=== PATIENT | female | born 2000 | race Caucasian/White ===

== ENCOUNTER 2021-07-18 13:39 | Inpatient (IN) | payer MEDICAID, SELFPAY ==
[2021-07-18 13:42] VITALS: BMI 42.4
[2021-07-18 14:33] VITALS: BP 117/77; PULSE 61; RESP 18; TEMP 36.4; O2SAT 98
--- NOTE | 2021-07-18 14:41 | PC.NURSE ---
ADMISSION 20 y/o Female. Direct admit from [facility]. SI after finding out last night that her boyfriend is cheating on her. With them breaking up, she now has to move out. This is also the father of her 1 year old child. Has a history of being inpatient in the past. Denies any suicidal intent but knows the thoughts would return if she went home from ED without help first. Has Hx of depression, anxiety, migraines, hypothyroidism, and Von Willebrand Disease. Upon arrival is tearful, cooperative, A&OX4. Denies current SI. Reports has anger issues at times. UDS negative. Does OP care with [facility] in [place]. Currently on Zoloft and Synthroid, confirmed with pharmacy and resumed per Dr order with Dr. Romo.
[2021-07-18 21:19] VITALS: BP 134/77; PULSE 82; RESP 16; TEMP 36.6; O2SAT 99
--- NOTE | 2021-07-18 21:28 | PC.NURSE ---
Bruising noted to right palm and index finger. States neck is sore. This nurse did not see bruising or redness noted to neck.
[2021-07-19 06:00] VITALS: BP 109/57; PULSE 52; RESP 16; TEMP 36.4; O2SAT 97
[2021-07-19] MEDS: sertraline 50 mg Tablet PO (08:00)
[2021-07-19] MEDS: levothyroxine 100 mcg Tablet PO (08:01)
--- NOTE | 2021-07-19 12:25 | P.NPUHP_ITS ---
Providers/Chief Complaint Admitting Physician: Raz Romo MD Chief Complaint: SI HPI NPU History of Present Illness Dianna Morgan is a 20 year old female who was admitted through the emergency department through [facility] in [facility] with the following report: This is a 20-year-old female with a history of anxiety, hypothyroidism, depression, migraine headaches who presents complaining of having suicidal thoughts. Her boyfriend cheated on her and she found out today. She has been having self-harm thoughts but no specific plan at this time. She wants to go to a mental hospital because she wants to be able to take care of herself and be a way from everybody. I ask if she can go home and follow-up with an outpatient psychiatrist but she would not contract for safety. She states that she knows that she will have suicidal thoughts to come back when she leaves the emergency department. She states that she has been to multiple mental health facilities and has been seeing multiple psychiatrists without any significant improvement. She denies any fever, nausea, vomiting, drug use at this time. Current psychotropic medications were listed as BuSpar 15 mg 3 times a day and Zoloft 100 mg daily. She reported that her Synthroid had recently been reduced from 125 mcg down to 100 mcg. Her TSH in the Emergency Department was 15.51 and they recommended increasing to 125 mcg. She said she had been compliant with it recently. She was admitted to the neuropsychiatry unit for definitive treatment of these issues. She says that she has been admitted to the hospital several times at her house. When she was 13 she was admitted for about 45 days. She is also seeing a psychiatrist and they have not been able to be helpful. She says the medications do not help. She has been more depressed the last month or so. She has noticed that her boyfriend has been acting different. They have been dating since they were in middle school and have been living together for the last 2 years. He is the father of her 1-year-old son. She decided to go through his phone and saw that he was talking to another girl. He says that he is not talking to her but she was texting with her. She said that if it was not significant then why did he hide it from her. He said that she was annoying him and he said that they should split up. He kicked her and her son out of the house. He said that he would sign away rights to their son. The son is now with her mother. She is going to live with her mother for the time being. She said she really has not had suicidal thoughts but is afraid that it will come if she does not get help. She is currently taking Zoloft 50 mg and BuSpar 15 mg 3 times a day. He does not think that those medications do anything for her. She thinks that she is also on Lamictal but does not know the dose. Says that she has been diagnosed with depression and anxiety and finally agreed that she has bipolar when she was 18. She said that she was too young to be diagnosed with previously. She has been on Abilify. It made her gain was referred for Zyprexa. she has taken Prozac and Lexapro without benefit. She does not think that Zoloft has been doing anything. She is not sure but thinks that she might have general effects during the past. She will call her mother and find out if she is on Lamictal and what is the correct does. She agreed to try Latuda. She said that her doctor recently reduced her levothyroxine to 100 mcg because of her thyroid level looks good. It was about 15.5 in the emergency department. She says that she has been compliant with her levothyroxine. However if she takes it on an empty stomach it makes her lightheaded. She takes it and then immediately eats. She agreed to try taking a smaller dose before breakfast and also before lunch to see if she can tolerate taking it and not eating immediately. She has actually been taking 125 mcg because she had not picked up the prescription for the 100 mcg daily. PAST PSYCHIATRIC HISTORY As above SOCIAL HISTORY As above Meds NPU Home Medications Medication Instructions Recorded Confirmed Last Taken Type levothyroxine [Synthroid] 100 mcg PO QAM 07/18/21 07/18/21 07/18/21 History sertraline 50 mg PO DAILY 07/18/21 07/18/21 07/17/21 History Allergies Allergy/AdvReac Type Severity Reaction Status Date / Time lamotrigine [From Lamictal] Allergy ALGY-Rash Verified 07/18/21 14:54 Penicillins Allergy ALGY-Rash Verified 07/18/21 14:54 vancomycin Allergy ALGY-Rash Verified 07/18/21 14:54 Mental Status Exam MSE Comments: This is a 20-year-old obese female who appears approximately her stated age and is in no acute distress. He is dressed in hospital scrubs and is pleasant and cooperative with the evaluation. He is fairly well groomed and has good eye contact. psychomotor activity is normal. Speech is at a regular rate and rhythm, normal volume, good articulation, not pressured. Alert, oriented X3 Attention and concentration appear to be normal. Memory is intact Mood is depressed. Affect is moderately dysphoric. Thought process is logical and goal-directed. Thought content: Denies auditory and visual hallucinations. No delusions or paranoia are noted. No current suicidal ideation, and no homicidal ideation. Fund of knowledge is average. Insight and judgment appear to be fairly good. Impulse control is fairly good. Vitals/I&O/Wt Last Vital Signs Temp 97.6 F 07/19/21 06:00 Pulse 52 L 07/19/21 06:00 Resp 16 07/19/21 06:00 BP 109/57 07/19/21 06:00 Pulse Ox 97 07/19/21 06:00 Weight last 48 hrs Weight 105.233 kg A&P Assessment and plan (1) Bipolar 1 disorder, depressed: Status: Acute (2) Anxiety: Status: Acute Additional A&P Information This is a 20-year-old female with multiple psychiatric centroblasts that she has not generally felt effective and helpful except that her boyfriend is depressed and worried that she will become suicidal. Plan: 1. Continue current medication. Lamictal she is taking. We will add Latuda mg daily and gradually increase as tolerated. 2. Continue every 15 minute checks for safety. 3. Encourage individual, group and milieu therapies. 4. Encourage sober living treatment after discharge at the highest level of care to which she is willing to commit. 5. We will monitor for safety for herself in the community prior to discharge. Involuntary Hold Information 96 Hour Hold: 96 Hour Involuntary Admission: No Attestations NPU Medical Necessity Statement*: Inpatient hospitalization is medically necessary and the clinically appropriate intervention at this time. We will initiate medications and make changes as indicated. She will be in the hospital for over 2 midnights. Likely length of stay 4-6 days Coding Level of Care Code Acute Energy Sales Consultant for Chg Fwd Diagnoses Bipolar 1 disorder, depressed F31.9 Anxiety F41.9
[2021-07-19 14:00] VITALS: BP 109/57; PULSE 52; RESP 16; TEMP 36.4; O2SAT 97
[2021-07-19 15:20] VITALS: BP 100/65; PULSE 69; RESP 16; TEMP 36.4; O2SAT 98
[2021-07-19] MEDS: lurasidone 20 mg Tablet PO (17:42)
[2021-07-19 19:56] VITALS: BP 139/84; PULSE 77; RESP 17; TEMP 36.6; O2SAT 98
[2021-07-20 05:41] VITALS: BP 99/65; PULSE 58; RESP 17; TEMP 36.7; O2SAT 99
[2021-07-20] MEDS: levothyroxine 50 mcg Tablet 75 MCG PO (06:13)
[2021-07-20] MEDS: sertraline 50 mg Tablet PO (09:12)
[2021-07-20] MEDS: levothyroxine 50 mcg Tablet PO (09:12)
[2021-07-20] MEDS: acetaminophen 325 mg Tablet 650 MG PO (09:52)
--- NOTE | 2021-07-20 09:54 | W.PM.NPUPNS ---
Subjective NPU Subjective: Interval history: She says that her depression and irritability seem to be a little better. Possibly related to the Latuda. However her anxiety is also increased. She says that many medications make her anxiety worse at first. The nurse talked to her mother and she is allergic to Lamictal. She had a rash. Her mother also said that she cannot come back to her home. She has anger problems and attacks her stepfather and her little brothers. Her back pain is also bad today. She says that she was rated at 9 out of 10. That is unusual for her. She says that she has never taken ibuprofen or any nonsteroidal anti-inflammatory drug before and will try that. He needs to continue to try Latuda. Mental Status Exam MSE Comments: This is a 20-year-old obese female who appears approximately her stated age and is in no acute distress. He is dressed in hospital scrubs and is pleasant and cooperative with the evaluation. He is fairly well groomed and has good eye contact. psychomotor activity is normal. Speech is at a regular rate and rhythm, normal volume, good articulation, not pressured. Alert, oriented X3 Attention and concentration appear to be normal. Memory is intact Mood is mildly depressed, better, better. Affect is mildly dysphoric. Thought process is logical and goal-directed. Thought content: Denies auditory and visual hallucinations. No delusions or paranoia are noted. No current suicidal ideation, and no homicidal ideation. Fund of knowledge is average. Insight and judgment appear to be fairly good. Impulse control is fairly good. Cognition: Patient Appearance: Appropriate Ability to Follow Directions: Good Patient Orientation (long list): Person, Place, Time, Name, Birthday and Month Comprehension Ability: Understands Concepts Hallucination Type: None Delusion Description: Not Present Thought Process: Appropriate Affect: Affect Description: Appropriate and Calm Behavior: Patient Behavior: Appropriate and Cooperative Speech Pattern: Appropriate and Clear Vitals/I&O/Wt Last Vital Signs Temp 98.1 F 07/20/21 05:41 Pulse 58 L 07/20/21 05:41 Resp 17 07/20/21 05:41 BP 99/65 07/20/21 05:41 Pulse Ox 99 07/20/21 05:41 Weight last 48 hrs Weight 105.233 kg A&P Assessment and plan (1) Bipolar 1 disorder, depressed: Status: Acute (2) Anxiety: Status: Acute Additional A&P Information This is a 20-year-old female with multiple psychiatric centroblasts that she has not generally felt effective and helpful except that her boyfriend is depressed and worried that she will become suicidal. Plan: 1. Continue current medication. Zoloft 50 mg. We will add Latuda 20 mg daily and gradually increase as tolerated. 2. Continue every 15 minute checks for safety. 3. Encourage individual, group and milieu therapies. 4. Encourage sober living treatment after discharge at the highest level of care to which she is willing to commit. 5. We will monitor for safety for herself in the community prior to discharge. Involuntary Hold Information 96 Hour Hold: 96 Hour Involuntary Admission: No Attestations NPU Medical Necessity Statement*: Inpatient hospitalization is medically necessary and the clinically appropriate intervention at this time. We will initiate medications and make changes as indicated. Coding Level of Care Code Acute Senior Insight Manager International for Jemima Olmstead Diagnoses Bipolar 1 disorder, depressed F31.9 Anxiety F41.9
[2021-07-20 13:41] VITALS: BP 99/65; PULSE 58; RESP 17; TEMP 36.7; O2SAT 99
[2021-07-20] MEDS: lurasidone 20 mg Tablet PO (17:03)
[2021-07-20 21:05] VITALS: BP 130/78; PULSE 61; RESP 15; TEMP 36.8; O2SAT 100
[2021-07-21 06:00] VITALS: BP 101/67; PULSE 61; RESP 16; TEMP 36.8; O2SAT 98
[2021-07-21] MEDS: levothyroxine 50 mcg Tablet 75 MCG PO (06:13)
--- NOTE | 2021-07-21 06:35 | PC.NURSE ---
Addendum entered by Merissa Servin RN 07/21/21 06:52: urine sample collected and hand carried to lab Original Note: Patient c/o pain on urination and frequency. Consulted providor and rcvd new order for UA and C&S if indicated.
[2021-07-21 07:23] LABS: Add Urine Microscopic? NO; Charge for UA Resulting for Rev
[2021-07-21 07:27] LABS: Bilirubin Urine 1+ (Negative); Blood Urine Neg (Negative); Glucose Urine UA Norm (Normal); Ketones Urine 1+ (Negative); Leukocyte Esterase Urine Negative (Negative); Nitrate Urine Negative (Negative); Protein Urine Neg (Negative); Specific Gravity, Urine 1.025 (1.005-1.030); Urine Appearance Clear (CLEAR); Urine Color Yellow (Yellow); Urobilinogen Urine Norm (Negative); pH Urine 5 (5-7)
[2021-07-21] MEDS: levothyroxine 50 mcg Tablet PO (09:36)
[2021-07-21] MEDS: sertraline 50 mg Tablet PO (09:36)
--- NOTE | 2021-07-21 10:16 | W.PM.NPUPNS ---
Subjective NPU Subjective: Interval history: She says that she is doing better. She did not have any side effects from the Latuda 20 mg last night. She does feel that it helps her anxiety and her irritability. Unfortunately she does not have insurance. She says that she applied for Medicaid because she had a insurance she did not qualify for Medicaid. Now she does not have any insurance and she thinks that she should qualify for Medicaid. She needs help applying again. We were going to increase the Latuda to 40 mg but she would not be able to afford it when she leaves. She agreed to try a combination of Geodon and lithium along with increased the Zoloft to 100 mg. She said that she was on Abilify previously but it made her sick. She does not want to be on risperidone because it might increase her weight. Mental Status Exam MSE Comments: This is a 20-year-old obese female who appears approximately her stated age and is in no acute distress. He is dressed in hospital scrubs and is pleasant and cooperative with the evaluation. He is fairly well groomed and has good eye contact. psychomotor activity is normal. Speech is at a regular rate and rhythm, normal volume, good articulation, not pressured. Alert, oriented X3 Attention and concentration appear to be normal. Memory is intact Mood is mildly depressed, but better. Affect is mildly dysphoric. Thought process is logical and goal-directed. Thought content: Denies auditory and visual hallucinations. No delusions or paranoia are noted. No current suicidal ideation, and no homicidal ideation. Fund of knowledge is average. Insight and judgment appear to be fairly good. Impulse control is fairly good. Cognition: Patient Appearance: Appropriate Ability to Follow Directions: Good Patient Orientation (long list): Person, Place, Time, Name, Birthday and Month Comprehension Ability: Understands Concepts Hallucination Type: None Delusion Description: Not Present Thought Process: Appropriate Affect: Affect Description: Appropriate Behavior: Patient Behavior: Appropriate Speech Pattern: Appropriate Vitals/I&O/Wt Last Vital Signs Temp 98.2 F 07/21/21 06:00 Pulse 61 07/21/21 06:00 Resp 16 07/21/21 06:00 BP 101/67 07/21/21 06:00 Pulse Ox 98 07/21/21 06:00 A&P Assessment and plan (1) Bipolar 1 disorder, depressed: Status: Acute (2) Anxiety: Status: Acute Additional A&P Information This is a 20-year-old female with multiple psychiatric centroblasts that she has not generally felt effective and helpful except that her boyfriend is depressed and worried that she will become suicidal. Plan: 1. Continue current medication. increase Zoloft 100 mg. We will stop Latuda 20 mg. Add Geodon and lithium. 2. Continue every 15 minute checks for safety. 3. Encourage individual, group and milieu therapies. 4. Encourage sober living treatment after discharge at the highest level of care to which she is willing to commit. 5. We will monitor for safety for herself in the community prior to discharge. Involuntary Hold Information 96 Hour Hold: 96 Hour Involuntary Admission: No Attestations NPU Medical Necessity Statement*: Inpatient hospitalization is medically necessary and the clinically appropriate intervention at this time. We will initiate medications and make changes as indicated. Coding Level of Care Code Acute Insulation Board Head Saw Operator for Jemima Olmstead Diagnoses Bipolar 1 disorder, depressed F31.9 Anxiety F41.9
[2021-07-21 14:00] VITALS: BP 106/69; PULSE 111; RESP 18; TEMP 36.6; O2SAT 98
[2021-07-21] MEDS: ziprasidone hcl 20 mg Capsule PO (16:23)
[2021-07-21] MEDS: lithium carbonate 300 mg Capsule PO (21:25)
[2021-07-21 21:46] VITALS: BP 124/66; PULSE 62; RESP 16; TEMP 37; O2SAT 97
--- NOTE | 2021-07-22 01:25 | PC.NURSE ---
Patients mother called and requested that Dr. Romo be made aware that patient has been on lithium in the past and it adversely affected her Thyroid function. She also said she was looking into alternative funding for Latuda if possible.
[2021-07-22] MEDS: levothyroxine 50 mcg Tablet 75 MCG PO (05:54)
[2021-07-22 06:00] VITALS: BP 90/57; PULSE 59; RESP 18; TEMP 36.9; O2SAT 100
--- NOTE | 2021-07-22 06:27 | PC.NURSE ---
Patient refused Ziprasidone this am, stating, I don't want to take it in the morning, only at night because I want to get a job in the mornings.
[2021-07-22] MEDS: levothyroxine 50 mcg Tablet PO (08:25)
[2021-07-22] MEDS: lithium carbonate 300 mg Capsule PO (08:25)
[2021-07-22] MEDS: sertraline 100 mg Tablet PO (08:25)
--- NOTE | 2021-07-22 13:55 | W.PM.NPUPNS ---
Subjective NPU Subjective: Interval history: Her other told the nurses that she has had problems with her thyroid when she took lithium 6 or 7 years ago. We will discontinue that. Her mom looked for a discount for the Latuda but could not find anything that would make it affordable. Our social work department put in her Medicaid application yesterday and that it might be 1-3 months before it is approved. She feels that the Geodon at bedtime is helping somewhat. She says that makes her sleepy and she does not want to take it in the morning because she needs to take care of her children and to work. She agreed to increase it to 40 mg at bedtime. Mental Status Exam MSE Comments: This is a 20-year-old obese female who appears approximately her stated age and is in no acute distress. She is dressed in hospital scrubs and is pleasant and cooperative with the evaluation. she is fairly well groomed and has good eye contact. psychomotor activity is normal. Speech is at a regular rate and rhythm, normal volume, good articulation, not pressured. Alert, oriented X3 Attention and concentration appear to be normal. Memory is intact Mood is mildly depressed, but better. Affect is mildly dysphoric. Thought process is logical and goal-directed. Thought content: Denies auditory and visual hallucinations. No delusions or paranoia are noted. No current suicidal ideation, and no homicidal ideation. Fund of knowledge is average. Insight and judgment appear to be fairly good. Impulse control is fairly good. Cognition: Patient Appearance: Appropriate Ability to Follow Directions: Good Patient Orientation (long list): Person, Place, Time, Name, Birthday and Month Comprehension Ability: Understands Concepts Hallucination Type: None Delusion Description: Not Present Thought Process: Appropriate Affect: Affect Description: Appropriate Behavior: Patient Behavior: Appropriate Speech Pattern: Appropriate Vitals/I&O/Wt Last Vital Signs Temp 98.4 F 07/22/21 06:00 Pulse 59 L 07/22/21 06:00 Resp 18 07/22/21 06:00 BP 90/57 07/22/21 06:00 Pulse Ox 100 07/22/21 06:00 A&P Assessment and plan (1) Bipolar 1 disorder, depressed: Status: Acute (2) Anxiety: Status: Acute Additional A&P Information This is a 20-year-old female with multiple psychiatric centroblasts that she has not generally felt effective and helpful except that her boyfriend is depressed and worried that she will become suicidal. Plan: 1. Continue current medication. Zoloft 100 mg. Stop Auxier. Change Geodon 40 mg QHS. 2. Continue every 15 minute checks for safety. 3. Encourage individual, group and milieu therapies. 4. Encourage sober living treatment after discharge at the highest level of care to which she is willing to commit. 5. We will monitor for safety for herself in the community prior to discharge. Involuntary Hold Information 96 Hour Hold: 96 Hour Involuntary Admission: No Attestations NPU Medical Necessity Statement*: Inpatient hospitalization is medically necessary and the clinically appropriate intervention at this time. We will initiate medications and make changes as indicated. Coding Level of Care Code Acute Nut Dehydrator Operator for Jemima Olmstead Diagnoses Bipolar 1 disorder, depressed F31.9 Anxiety F41.9
[2021-07-22 14:00] VITALS: BP 114/76; PULSE 68; RESP 20; TEMP 36.6; O2SAT 98
[2021-07-22] MEDS: ziprasidone hcl 20 mg Capsule 40 MG PO (18:26)
[2021-07-22 20:31] VITALS: BP 113/79; PULSE 79; RESP 17; TEMP 36.9; O2SAT 98
[2021-07-23 06:00] VITALS: BP 113/79; PULSE 79; RESP 17; TEMP 36.9; O2SAT 98
[2021-07-23 06:37] VITALS: BP 96/62; PULSE 50; RESP 16; TEMP 36.6; O2SAT 98
[2021-07-23] MEDS: levothyroxine 50 mcg Tablet 75 MCG PO (06:58)
[2021-07-23] MEDS: levothyroxine 50 mcg Tablet PO (09:22)
[2021-07-23] MEDS: sertraline 100 mg Tablet PO ×2 (09:23→17:59)
--- NOTE | 2021-07-23 11:47 | P.NPUPN_ITS ---
Subjective NPU Subjective: Interval history: She says that the Zoloft 100 mg makes her a little tired. She agreed to change it to the bedtime. She also feels like it is working a little bit too good. She is laughing more than she feels is appropriate. The Geodon makes her very tired. It is fine. She likes that but will take it later in the day when she is home. Feels that she will be ready to go home on Monday. Mental Status Exam MSE Comments: This is a 20-year-old obese female who appears approximately her stated age and is in no acute distress. She is dressed in hospital scrubs and is pleasant and cooperative with the evaluation. she is fairly well groomed and has good eye contact. psychomotor activity is normal. Speech is at a regular rate and rhythm, normal volume, good articulation, not pressured. Alert, oriented X3 Attention and concentration appear to be normal. Memory is intact Mood is very mildly depressed, better. Affect is very mildly dysphoric. Thought process is logical and goal-directed. Thought content: Denies auditory and visual hallucinations. No delusions or paranoia are noted. No current suicidal ideation, and no homicidal ideation. Fund of knowledge is average. Insight and judgment appear to be fairly good. Impulse control is fairly good. Cognition: Patient Appearance: Appropriate Ability to Follow Directions: Good Patient Orientation (long list): Person, Place, Time, Name, Birthday and Month Comprehension Ability: Understands Concepts Hallucination Type: None Delusion Description: Not Present Thought Process: Appropriate Affect: Affect Description: Appropriate and Calm Behavior: Patient Behavior: Appropriate and Cooperative Speech Pattern: Appropriate and Clear Vitals/I&O/Wt Last Vital Signs Temp 97.9 F 07/23/21 06:37 Pulse 50 L 07/23/21 06:37 Resp 16 07/23/21 06:37 BP 96/62 07/23/21 06:37 Pulse Ox 98 07/23/21 06:37 A&P Assessment and plan (1) Bipolar 1 disorder, depressed: Status: Acute (2) Anxiety: Status: Acute Additional A&P Information This is a 20-year-old female with multiple psychiatric centroblasts that she has not generally felt effective and helpful except that her boyfriend is depressed and worried that she will become suicidal. Plan: 1. Continue current medication. Zoloft 100 mg changed to bedtime. Change Geodon 40 mg QHS. 2. Continue every 15 minute checks for safety. 3. Encourage individual, group and milieu therapies. 4. Encourage sober living treatment after discharge at the highest level of care to which she is willing to commit. 5. We will monitor for safety for herself in the community prior to discharge. Involuntary Hold Information 96 Hour Hold: 96 Hour Involuntary Admission: No Attestations NPU Medical Necessity Statement*: Inpatient hospitalization is medically necessary and the clinically appropriate intervention at this time. We will initiate medications and make changes as indicated. Coding Level of Care Code Acute Psychology Associate for g Fwd Diagnoses Bipolar 1 disorder, depressed F31.9 Anxiety F41.9
[2021-07-23 14:00] VITALS: BP 126/84; PULSE 76; RESP 17; TEMP 37; O2SAT 96
[2021-07-23] MEDS: ziprasidone hcl 20 mg Capsule 40 MG PO (17:59)
[2021-07-23 20:26] VITALS: BP 98/58; PULSE 50; RESP 16; O2SAT 95
[2021-07-24] MEDS: levothyroxine 50 mcg Tablet 75 MCG PO (05:49)
[2021-07-24 06:00] VITALS: BP 123/81; PULSE 63; RESP 18; TEMP 36.8; O2SAT 98
[2021-07-24] MEDS: levothyroxine 50 mcg Tablet PO (09:07)
--- NOTE | 2021-07-24 11:28 | W.PM.NPUPNS ---
Subjective NPU Subjective: Interval history: She said that the Geodon and Zoloft at 6 PM last night caused her to be sleepy and she slept until about midnight but then she was up and could not get back to sleep. It was very frustrating. She would like to change it to 8 PM and she thinks that she would sleep very well. she continues to feel that the geodon and zoloft are working well for her mood. She is looking forward to going home tomorrow. Her Grandmother is coming to pick her up. Mental Status Exam MSE Comments: This is a 20-year-old obese female who appears approximately her stated age and is in no acute distress. She is dressed in hospital scrubs and is pleasant and cooperative with the evaluation. she is fairly well groomed and has good eye contact. psychomotor activity is normal. Speech is at a regular rate and rhythm, normal volume, good articulation, not pressured. Alert, oriented X3 Attention and concentration appear to be normal. Memory is intact Mood is good, better. Affect is euthymic. Thought process is logical and goal-directed. Thought content: Denies auditory and visual hallucinations. No delusions or paranoia are noted. No current suicidal ideation, and no homicidal ideation. Fund of knowledge is average. Insight and judgment appear to be fairly good. Impulse control is fairly good. Cognition: Patient Appearance: Appropriate Ability to Follow Directions: Good Patient Orientation (long list): Person, Place, Time and Name Comprehension Ability: Understands Concepts Hallucination Type: None Delusion Description: Not Present Thought Process: Appropriate Affect: Affect Description: Calm Behavior: Patient Behavior: Cooperative Speech Pattern: Clear Vitals/I&O/Wt Last Vital Signs Temp 98.3 F 07/24/21 06:00 Pulse 63 07/24/21 06:00 Resp 18 07/24/21 06:00 BP 123/81 07/24/21 06:00 Pulse Ox 98 07/24/21 06:00 A&P Assessment and plan (1) Bipolar 1 disorder, depressed: Status: Acute (2) Anxiety: Status: Acute Additional A&P Information This is a 20-year-old female with multiple psychiatric admissions that she has not generally felt effective or helpful. She is admitted again for depression and suicidal ideation Plan: 1. Continue current medication. Change Zoloft to 100 mg and Geodon 40 mg to 8 PM 2. Continue every 15 minute checks for safety. 3. Encourage individual, group and milieu therapies. 4. Encourage sober living treatment after discharge at the highest level of care to which she is willing to commit. 5. We will monitor for safety for herself in the community prior to discharge. Involuntary Hold Information 96 Hour Hold: 96 Hour Involuntary Admission: No Attestations NPU Medical Necessity Statement*: Inpatient hospitalization is medically necessary and the clinically appropriate intervention at this time. We will initiate medications and make changes as indicated. Coding Level of Care Code Acute Process Design Chemical Engineer for Jemima Fwd Diagnoses Bipolar 1 disorder, depressed F31.9 Anxiety F41.9
[2021-07-24 14:00] VITALS: BP 119/80; PULSE 66; RESP 17; O2SAT 99
[2021-07-24] MEDS: OLANZapine 5 mg ODT PO (15:40)
[2021-07-24 20:13] VITALS: BP 100/62; PULSE 58; RESP 17; O2SAT 99
[2021-07-24] MEDS: sertraline 100 mg Tablet PO (20:32)
[2021-07-24] MEDS: ziprasidone hcl 20 mg Capsule 40 MG PO (20:32)
[2021-07-25 05:52] VITALS: BMI 42.4
[2021-07-25 06:00] VITALS: BP 96/63; PULSE 53; RESP 18; TEMP 36.6; O2SAT 99
[2021-07-25] MEDS: levothyroxine 50 mcg Tablet 75 MCG PO (07:22)
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
[2021-07-25] MEDS: levothyroxine 50 mcg Tablet PO (08:53)
[2021-07-25 09:01] VITALS: BP 96/63; PULSE 53; RESP 18; TEMP 36.6; O2SAT 99
== END 2021-07-25 13:31 | disposition home or self-care (01) | DRG 885 ==
PROVIDERS: Admitting Provider Psychiatry & Neurology Psychiatry; Visit Provider Psychiatry & Neurology Psychiatry
DX: F31.9 Bipolar disorder, unspecified (principal); R45.851 Suicidal ideations; Z68.41 Body mass index [BMI] 40.0-44.9, adult; F41.9 Anxiety disorder, unspecified; E03.9 Hypothyroidism, unspecified; Z63.0 Problems in relationship with spouse or partner; E66.9 Obesity, unspecified
CPT/HCPCS: 81003; 81025; 97150; 97165